=== PATIENT | male | born 1985 | race Caucasian/White ===

== ENCOUNTER 2017-09-29 18:53 | Emergency (ER) | payer OTHER ==
[2017-09-29] MEDS ORDERED: Ketorolac INJ* 60 MG/2 ML VIAL IM ONE (19:27)
[2017-09-29] MEDS ORDERED: oxyCODONE/Acetamin 5/325 MG* TAB PO ONE (19:27)
--- NOTE | 2017-09-29 20:55 | RAD ---
INDICATION: Right clavicle trauma. TECHNIQUE: 2 views of the right clavicle were obtained. FINDINGS: There is a slightly comminuted fracture of the midportion of the clavicle. There is a butterfly fragment present. The distal lateral fragment is displaced inferiorly approximately 2 shaft diameters relative to the proximal fragment. IMPRESSION: COMMINUTED DISPLACED FRACTURE OF THE CLAVICLE.
--- NOTE | 2017-09-29 20:57 | RAD ---
INDICATION: Right shoulder injury. TECHNIQUE: 4 views of the right shoulder were obtained. FINDINGS: Again note is made of a comminuted displaced fracture of the clavicle. No additional fracture is seen. Joint spaces appear maintained. IMPRESSION: COMMINUTED DISPLACED FRACTURE OF THE CLAVICLE, NO ADDITIONAL FRACTURE IS SEEN.
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
[2017-09-29 21:38] VITALS: BP 127/67
== END 2017-09-29 21:36 | disposition home or self-care (01) ==
LOC: ED 18:53
DX: S42.001A Fracture of unspecified part of right clavicle, initial encounter for closed fracture (principal); V13.4XXA Pedal cycle driver injured in collision with car, pick-up truck or van in traffic accident, initial encounter; Y93.55 Activity, bike riding; Y92.9 Unspecified place or not applicable; Z87.891 Personal history of nicotine dependence
CPT/HCPCS: 96372; 99283; A9270-GY; J1885

== ENCOUNTER 2017-10-01 12:10 | Day surgery (SDC) | payer OTHER ==
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
[~2017-10-01 12:10] MED LIST: Acetaminophen IV 1GM/100ML * 1,000 MG/100 ML VIAL IVPB ONE; Buffered Lidocaine 0.9% SYRIN* 5 ML/SYR SYRINGE INTRADERM ONE; Dexamethasone IV* 4 MG/ML 1 ML (4 MG) IV SLOW PU ONE
[2017-10-01] MEDS ORDERED: Buffered Lidocaine 0.9% SYRIN* 5 ML/SYR SYRINGE ONE (12:35)
[2017-10-01] MEDS ORDERED: ceFAZolin 2 GM PREMIX (*) 2 GM/50 ML BAG IVPB ONE (12:35)
[2017-10-01] MEDS ORDERED: Dexamethasone IV* 4 MG/ML 1 ML (4 MG) ONE ×4 (12:38→16:20)
[2017-10-01] MEDS ORDERED: Acetaminophen IV 1GM/100ML * 100 ML ONE (12:46)
[2017-10-01] MEDS ORDERED: Midazolam* 1 MG/ML 2 ML VIAL (2 MG) ONE ×2 (14:53→16:40)
[2017-10-01] MEDS ORDERED: fentaNYL* 50 MCG/ML 2 ML VIAL (100 MCG VIAL) ONE (14:53)
[2017-10-01] MEDS ORDERED: Lidocaine 2% PF * 5 ML VIAL ONE (14:56)
[2017-10-01] MEDS ORDERED: Ketorolac INJ* 30 MG/ML 1 ML VIAL ONE (14:56)
[2017-10-01] MEDS ORDERED: Propofol* 10 MG/ML 20 ML BTL IV PUSH ONE (14:56)
[2017-10-01] MEDS ORDERED: Bupivacaine 0.5% SDV PF* 30ML VIAL ONE (15:13)
[2017-10-01] MEDS ORDERED: Rocuronium* 10 MG/ML VIAL ONE (15:38)
[2017-10-01] MEDS ORDERED: fentaNYL* 50 MCG/ML 2 ML VIAL (100 MCG VIAL) IV PRN (16:18)
[2017-10-01] MEDS ORDERED: PROCHLORPERAZINE INJ 5 MG/ML 2 ML VIAL IV PRN (16:18)
[2017-10-01] MEDS ORDERED: Naloxone* 0.4 MG/ML 1 ML VIAL IV PRN (16:18)
[2017-10-01] MEDS ORDERED: HYDROmorphone INJ* 1 MG/ML CARPUJECT SYRINGE IV PRN (16:18)
[2017-10-01] MEDS ORDERED: Famotidine IV* 10 MG/ML 2 ML (20 mg) ONE (16:20)
[2017-10-01] MEDS ORDERED: HYDROmorphone INJ* 0.5 MG/0.5 ML SYRINGE ONE (16:35)
[2017-10-01] MEDS ORDERED: oxyCODONE TAB* 5 MG TAB ONE ×2 (18:25→18:31)
[2017-10-01] MEDS: oxyCODONE TAB* 5 MG TAB PO PRN ×2 (18:29→18:32)
--- NOTE | 2017-10-01 18:31 | RAD ---
INDICATION: Traumatic right clavicular fracture operative reduction and internal fixation. COMPARISON: Comparison is made with a prior study from September 29, 2017. TECHNIQUE: 11.9 seconds of intermittent fluoroscopic guidance were provided and 2 spot films of the right clavicle were obtained in the operating room. FINDINGS: The films demonstrate placement of a surgical plate along the superior aspect of the clavicle transversing the fracture fragments and transfixed with multiple screws. IMPRESSION: INTRAOPERATIVE CONTROL FILMS. CPT II Codes: G9500
--- NOTE | 2017-10-01 18:44 | RAD ---
INDICATION: Right clavicular fracture operative reduction evaluate for pneumothorax. COMPARISON: Comparison is made with a prior study from February 05, 2016 and TECHNIQUE: An upright portable view of the chest was obtained. FINDINGS: Cardiac and mediastinal contours appear to be within normal limits. The lungs are clear. No pleural effusion or pneumothorax is seen. The patient is status post operative reduction internal fixation of the right clavicle. There is a small amount of air within the adjacent soft tissues consistent with the patient's recent surgery. IMPRESSION: NO EVIDENCE FOR ACUTE FINDING.
[2017-10-01 19:00] VITALS: BP 134/79
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
== END 2017-10-01 19:12 | disposition home or self-care (01) ==
LOC: OR 12:10
PROVIDERS: ATTEND Orthopaedic Surgery
DX: S42.021A Displaced fracture of shaft of right clavicle, initial encounter for closed fracture (principal); V89.2XXA Person injured in unspecified motor-vehicle accident, traffic, initial encounter; Y92.410 Unspecified street and highway as the place of occurrence of the external cause
CPT/HCPCS: 71045; 76001; A9270-GY; C1713; C1776; J0690; J1100; J1170; J1885; J2250; J2704; J3010